=== PATIENT | male | born 1985 | race Hispanic/Latino ===

== ENCOUNTER 2021-06-26 09:39 | Emergency (ER) | payer OTHER ==
[~2021-06-26] VITALS: Ht 162.6 cm; Wt 79.5 kg
[~2021-06-26 09:39] MED LIST: CIPROFLOXACIN250 MG OR; LOMOTIL2.5 MG PO; OMEPRAZOLE20 MG PO
[2021-06-26] MEDS ORDERED: LORTAB 1010 MG PO (11:58)
[2021-06-26] MEDS ORDERED: KEFLEX500 MG PO (11:58)
[2021-06-26 12:00] VITALS: BP 134/72
== END 2021-06-26 12:16 | disposition home or self-care (01) | DRG 563 ==
LOC: ED 09:39
PROC: 0HQMXZZ Repair Right Foot Skin, External Approach (ICD-10-PCS; principal; 2021-06-26)
PROC: 0HDRXZZ Extraction of Toe Nail, External Approach (ICD-10-PCS; 2021-06-26)
DX: S92.421A Displaced fracture of distal phalanx of right great toe, initial encounter for closed fracture (principal); S91.211A Laceration without foreign body of right great toe with damage to nail, initial encounter; W20.8XXA Other cause of strike by thrown, projected or falling object, initial encounter; Y93.H9 Activity, other involving exterior property and land maintenance, building and construction; Y92.007 Garden or yard of unspecified non-institutional (private) residence as the place of occurrence of the external cause

== ENCOUNTER 2021-06-27 12:30 | Emergency (ER) | payer OTHER ==
[~2021-06-27] VITALS: Ht 162.6 cm; Wt 81.0 kg
[~2021-06-27 12:30] MED LIST changes: +KEFLEX500 MG PO; +LORTAB 1010 MG PO
[2021-06-27 14:42] VITALS: BP 130/88
== END 2021-06-27 14:42 | disposition home or self-care (01) | DRG 950 ==
LOC: ED 12:30
DX: S91.112D Laceration without foreign body of left great toe without damage to nail, subsequent encounter (principal); W31.89XD Contact with other specified machinery, subsequent encounter

== ENCOUNTER 2022-11-15 13:20 | Emergency (ER) | payer OTHER | END 2022-11-15 14:15 | disposition left against medical advice (07) | DRG 951 | LOC: ED 13:20 → LWOBS 14:06 | DX: Z53.21 Procedure and treatment not carried out due to patient leaving prior to being seen by health care provider (principal) ==